=== PATIENT | male | born 1970 | race African-American/Black ===

== ENCOUNTER 2018-01-20 20:37 | Emergency (ER) | payer SELFPAY ==
--- NOTE | 2018-01-20 21:22 | RADIOLOGY REPORT (SQ) ---
EXAM DESCRIPTION: HAND RIGHT 3 VIEWS COMPLETED DATE/TIME: 01/20/2018 8:59 pm REASON FOR STUDY: Pain s/p injury (Hit a wall with fist) COMPARISON: None. EXAM PARAMETERS: NUMBER OF VIEWS: Three views. TECHNIQUE: AP, lateral and oblique radiographic images acquired of the right hand. LIMITATIONS: None. FINDINGS: MINERALIZATION: Normal. BONES: No dislocation. Comminuted fracture in the distal 5th metacarpal metaphysis with mild dorsal angulation and displacement. . JOINTS: No effusion. SOFT TISSUES: No significant soft tissue swelling. No radiopaque foreign body. OTHER: No other significant finding. IMPRESSION: Comminuted fracture in the distal 5th metacarpal metaphysis with mild dorsal angulation and displacement. TECHNICAL DOCUMENTATION: JOB ID: [id number] [place]-[id number] 2010 [employer]- All Rights Reserved Reading location - IP/workstation name: [email or web address]
[2018-01-20] MEDS ORDERED: LIDOCAINE 1% INJ-PF (10 MG/ML) 30 ML SDV INJ ONE (22:10)
[2018-01-20] MEDS ORDERED: OXYCODONE-ACETAMINOPHEN 5-325 MG TABLET PO ONE (23:12)
[2018-01-20] MEDS ORDERED: CEPHALEXIN 500 MG CAPSULE PO ONE (23:32)
[2018-01-20] MEDS ORDERED: HYDROCODONE/ACETAMINOPHEN 5-325 MG (6 TAB/ER DISP) PO PRN (23:33)
--- NOTE | 2018-01-20 23:39 | ER Document Report ---
ED Hand/Wrist Injury - General Chief Complaint: Hand Injury Stated Complaint: HAND INJURY Time Seen by Provider: 01/20/18 22:00 Mode of Arrival: Ambulatory Information source: Patient Notes: 47-year-old male presents to ED for complaint to the right hand after he punched a wall when he got angry at something he was trying to fix. He has a open wound to the ulnar side of his right hand with swelling tenderness and bruising. Is alert oriented respirations regular and unlabored speaking with full sentences walks with a even steady gait. TRAVEL OUTSIDE OF THE [place] IN LAST 30 DAYS: No - HPI Injury to: Hand - Right Onset: Just prior to arrival Where: Home, Indoors Timing: Still present Quality of pain: Sharp, Throbbing Severity: Severe Pain Level: 5 Context: Laceration, Swelling, Other - Punched a wall - Related Data Allergies/Adverse Reactions: Penicillins Allergy (Verified 01/20/18 20:41) Past Medical History - General Information source: Patient - Social History Smoking Status: Former Smoker Cigarette use (# per day): No Chew tobacco use (# tins/day): No Smoking Education Provided: No Frequency of alcohol use: None Drug Abuse: None Occupation: Heating and air/fast food Lives with: Family Family History: Reviewed & Not Pertinent Patient has suicidal ideation: No Patient has homicidal ideation: No - Past Medical History Cardiac Medical History: Reports: None Pulmonary Medical History: Reports: Hx Asthma, Hx Bronchitis, Hx Pneumonia EENT Medical History: Reports: None Neurological Medical History: Reports: None Endocrine Medical History: Reports: None Renal/ Medical History: Reports: None Malignancy Medical History: Reports None GI Medical History: Reports: None Musculoskeletal Medical History: Reports None Skin Medical History: Reports None Psychiatric Medical History: Reports: None Traumatic Medical History: Reports: Hx Fractures - Open comminuted boxer's fracture on 01/20/2018 Infectious Medical History: Reports: None Surgical Hx: Negative Past Surgical History: Reports: None - Immunizations Immunizations up to date: Yes Hx Diphtheria, Pertussis, Tetanus Vaccination: Yes Review of Systems - Review of Systems Constitutional: No symptoms reported EENT: No symptoms reported Cardiovascular: No symptoms reported Respiratory: No symptoms reported Gastrointestinal: No symptoms reported Genitourinary: No symptoms reported Male Genitourinary: No symptoms reported Musculoskeletal: Other - Right hand pain Skin: Other - Laceration just below the fifth finger on the right hand Hematologic/Lymphatic: No symptoms reported Neurological/Psychological: No symptoms reported -: Yes All other systems reviewed and negative Physical Exam - Vital signs Vitals: Temp Pulse Resp BP Pulse Ox 98.6 F 59 L 20 133/79 H 100 01/20/18 21:06 01/20/18 21:06 01/20/18 21:06 01/20/18 21:06 01/20/18 21:06 Interpretation: Normal - General General appearance: Appears well, Alert - HEENT Head: Normocephalic, Atraumatic Eyes: Normal Pupils: PERRL - Respiratory Respiratory status: No respiratory distress Chest status: Nontender Breath sounds: Normal Chest palpation: Normal - Cardiovascular Rhythm: Regular Heart sounds: Normal auscultation Murmur: No - Abdominal Inspection: Normal Distension: No distension Bowel sounds: Normal Tenderness: Nontender Organomegaly: No organomegaly - Back Back: Normal, Nontender - Extremities General upper extremity: Normal temperature General lower extremity: Normal inspection, Nontender, Normal color, Normal ROM , Normal temperature, Normal weight bearing. No: Loretta's sign Hand: Tender, Ecchymosis, Laceration, No evidence of human bite, No evidence of FB, Swelling - Neurological Neuro grossly intact: Yes Cognition: Normal Orientation: AAOx4 Cosme Coma Scale Eye Opening: Spontaneous [place] Coma Scale Verbal: Oriented [place] Coma Scale Motor: Obeys Commands Cosme Coma Scale Total: 15 Speech: Normal Motor strength normal: LUE, RUE, LLE, RLE Sensory: Normal - Psychological Associated symptoms: Normal affect, Normal mood - Skin Skin Temperature: Warm Skin Moisture: Dry Skin Color: Normal Skin irregularity: Laceration - 1.5 cm laceration fifth metacarpal with open comminuted boxer fracture Irregularity with: Swelling, Tenderness Course - Re-evaluation Re-evalutation: 01/20/18 23:44 Wound well irrigated after check in depth the wound this is an open comminuted fracture of the fifth metacarpal. Patient was started on Keflex and given Percocet before treating the wound. Wound was sutured with 2 sutures and then ulnar gutter splint applied. Patient was given instructions on elevation ice and follow-up with orthopedics by telephone in the morning. Patient was discharged home with a [employer] dispense pack and prescription for Keflex. Patient was instructed to please call orthopedics in the morning to schedule follow-up with for this open fracture. - Vital Signs Vital signs: Temp Pulse Resp BP Pulse Ox 98.5 F 67 18 128/85 H 98 01/21/18 00:10 01/21/18 00:10 01/21/18 00:10 01/21/18 00:10 01/21/18 00:10 - Diagnostic Test Radiology reviewed: Image reviewed, Reports reviewed Procedures - Immobilization Right Hand Immobilizer type: Ulnar Performed by: PCT Post-Proc Neuro Vasc Exam: Normal Alignment checked and good: No - Fracture not reduced open boxer's fracture - Laceration/Wound Repair Right Hand open comminuted fracture Time completed: 23:42 Wound length (cm): 1.5 Wound's Depth, Shape: Other - Open comminuted fracture Laceration pre-procedure: Sterile PPE donned, Sterile drapes applied, Shur- Clens applied Anesthetic type: 1% Lidocaine Volume Anesthetic (mLs): 5 Irrigated w/ Saline (mLs): 300 Wound Repaired With: Sutures Suture Size/Type: 5:0 Number of Sutures: 2 Layer Closure?: No Post-procedure wound care: Sterile dressing applied, Splint applied, Sling applied Post-procedure NV exam normal: Yes Complications: Yes - Open comminuted fracture Discharge - Discharge Clinical Impression: Right open comminuted boxer fracture Condition: Stable Disposition: HOME, SELF-CARE Additional Instructions: Fractured Fifth Metacarpal (Boxer's) You have a fracture of the fifth metacarpal bone in the hand, often called a Boxer's Fracture. The fracture is usually caused by striking the knuckle against a hard surface -- such as hitting a wall with the fist. This fracture heals well. Some degree of angle in the fracture is perfectly acceptable, resulting in only a slightly rounder knuckle. Your physician has determined whether your fracture could benefit from "setting", and has outlined a treatment plan for you. You need to call orthopedics in the morning and schedule follow-up visit as this is open comminuted fracture. Cephalexin The antibiotic you've been prescribed is a member of the cephalosporin class. This type of antibiotic covers a wide variety of infections, including those of the skin, lungs, and urinary tract. It's useful for staph infections. This antibiotic is slightly similar to the penicillin family. In rare cases , a person who is allergic to penicillin will also be allergic to this medication. If you have had a severe allergic reaction to penicillin, and have not taken this antibiotic since that time, notify your doctor. Antibiotics which cover many germs ("broad spectrum" antibiotics) are more likely to cause diarrhea or "yeast" infections. Women prone to vaginal yeast problems may suffer an attack after taking this antibiotic. In infants, oral thrush (white spots "stuck" on the cheek) or yeast diaper rash may result. See your doctor if these problems occur. Call at once if you develop itching, hives , shortness of breath, or lightheadedness. Ice & Elevation Apply ice packs frequently against the painful area. Many different schedules are recommended, such as "20 minutes on, 20 minutes off" or "one hour ice, two hours rest." If you need to work, you may need to go longer between ice treatments. You should plan to have the area ice packed AT LEAST one- fourth of the time. The ice should be applied over the wrap, tape, or splint, or over a layer of cloth -- not directly against the skin. Some ice bags have a built-in cloth and can be put directly on the skin. Your injured part should be elevated as much as possible over the next 48 hours. Try to keep the injury above the level of the heart. Avoid use of the injured area. Elevation and rest will decrease the swelling. Do not change this dressing for 24 hours. After 24 hours, if you have not followed up with orthopedics then you need to start cleaning the wound as below. Please call the orthopedic surgeon first thing in the morning to schedule follow-up. SOAP CLEANSING: Gently wash the wound daily using a mild soap (like Ivory, Phisoderm, Neutrogena). Use warm water, rubbing gently until all debris, ooze, and crusting have been washed from the wound. Allow to dry briefly (about 10 minutes) after cleaning. Repeat this cleansing at least three times a day for the first two days and then once or twice a day. ANTIBIOTIC OINTMENT PROTECTION: Your wounds are such that dressing them is not practical or optional. After cleansing, you should apply a thin coating of antibiotic ointment ( Bacitracin, not Neosporin) to the wounds at least three times daily. This lessens infection risk, and may decrease the amount of scarring. Use a q-tip or dull butter knife, not your finger, to apply this ointment. Any debris or ooze which builds up in the ointment should be gently rubbed off with a sterile gauze pad. Harder crusting may need to be gently scrubbed off with a clean wash cloth with soap and warm water, perhaps applying a warm, wet wash cloth to the wound for ten minutes first. Development of redness, severe itching, or blistering may mean allergy to the ointment. See the doctor. ORAL NARCOTIC MEDICATION: You have been given a prescription for pain control. This medication is a narcotic. It's best taken with food, as nausea can result if taken on an empty stomach. Don't operate machinery or drive within six hours of taking this medication. Do not combine this medicine with alcohol, or with any medication which can cause sedation (such as cold tablets or sleeping pills) unless you get permission from the physician. Narcotics tend to cause constipation. If possible, drink plenty of fluids and eat a diet high in fiber and fruits. FOLLOW-UP CARE: Please return in __2___ days for an infection check and dressing change. Your sutures should be removed in __10 ___ days. To facilitate a timely removal of your sutures, you may return to the [facility] at [facility]. You do not need to call for an appointment, but the best time to come in for suture removal is early in the morning. If you have been referred to another physician for follow-up care, call that physicians office for an appointment as you were instructed. If you experience a significant change in your laceration, or if you are concerned there may be an infection (swelling, redness, drainage, increasing tenderness, red streaks, tender lumps in the armpit or groin above the laceration, or fever) , return to the Emergency Department immediately re-evaluation. Prescriptions: Cephalexin Monohydrate [Keflex 500 mg Capsule] 500 mg PO QID #20 capsule Forms: Elevated Blood Pressure, Return to Work Referrals: MAURIZIO JONES NP [Primary Care Provider] - Follow up as needed BALTA DUARTE DO [ACTIVE STAFF] - Follow up as needed
[2018-01-21 00:11] VITALS: BP 128/85
== END 2018-01-21 00:11 | disposition home or self-care (01) ==
LOC: ER 20:37
DX: S62.306B Unspecified fracture of fifth metacarpal bone, right hand, initial encounter for open fracture (principal); M79.641 Pain in right hand; W22.01XA Walked into wall, initial encounter; Y92.009 Unspecified place in unspecified non-institutional (private) residence as the place of occurrence of the external cause; J45.909 Unspecified asthma, uncomplicated; Z88.0 Allergy status to penicillin; Z87.891 Personal history of nicotine dependence
CPT/HCPCS: 99283; 73130; 26605; J3490

== ENCOUNTER 2018-03-29 06:59 | Emergency (ER) | payer SELFPAY ==
[2018-03-29 07:05] VITALS: BP 126/81
[2018-03-29] MEDS ORDERED: IPRATROPIUM/ALBUTEROL 0.5-2.5 MG/3 ML AMPUL NEB ONE (07:46)
--- NOTE | 2018-03-29 08:20 | RADIOLOGY REPORT (SQ) ---
EXAM DESCRIPTION: CHEST 2 VIEWS COMPLETED DATE/TIME: 03/29/2018 8:03 am REASON FOR STUDY: cough/wheeze COMPARISON: None. EXAM PARAMETERS: NUMBER OF VIEWS: two views TECHNIQUE: Digital Frontal and Lateral radiographic views of the chest acquired. RADIATION DOSE: NA LIMITATIONS: none FINDINGS: LUNGS AND PLEURA: No opacities, masses or pneumothorax. No pleural effusion. MEDIASTINUM AND HILAR STRUCTURES: No masses or contour abnormalities. HEART AND VASCULAR STRUCTURES: Heart normal size. No evidence for failure. BONES: No acute findings. HARDWARE: None in the chest. OTHER: Small external bottle-like overlies the right costophrenic angle on the PA image. IMPRESSION: 1. NO ACUTE RADIOGRAPHIC FINDING IN THE CHEST. TECHNICAL DOCUMENTATION: JOB ID: [id number] [employer]- All Rights Reserved Reading location - IP/workstation name: [email or web address]
--- NOTE | 2018-03-29 09:33 | ER Document Report ---
ED Respiratory Problem - General Chief Complaint: Cough Stated Complaint: SHORTNESS OF BREATH Time Seen by Provider: 03/29/18 07:41 Mode of Arrival: Ambulatory Information source: Patient Notes: Patient is a 48-year-old male comes emergency room complaining of cough congestion. 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 He states that has progressively gotten worse he has a history of asthma he did use his inhaler once yesterday and did not feel like he gave him much relief. He then last night his stated that he was hot all over his body and she was using a wet rag to keep him cooler. Patient did not take a temperature he just felt like he was hot. He only took 1 dose of NyQuil last night and did not get any sleep. He denies any history of cardiac problems does not smoke and is generally in healthy condition. TRAVEL OUTSIDE OF THE [place] IN LAST 30 DAYS: No - HPI Patient complains to provider of: Asthma Onset: Other Duration: Continuous, Worse/persistent Initiating Event: Exertion, URI Quality of pain: Achy Severity: Moderate Pain Level: 3 Short of Breath: Mild Chest pain/discomfort: Worse with deep breaths Cough: Productive Sputum amount: Moderate Sputum color: Green Sputum consistency: Thick At home treatment: Bronchodilators Associated symptoms: Congestion, Facial pain, Sinus pain/pressure, Wheezing Similar symptoms previously: No Recently seen / treated by doctor: No - Related Data Allergies/Adverse Reactions: Penicillins Allergy (Verified 01/20/18 20:41) Past Medical History - General Information source: Patient - Social History Smoking Status: Never Smoker Cigarette use (# per day): No Chew tobacco use (# tins/day): No Smoking Education Provided: No Frequency of alcohol use: None Drug Abuse: None Family History: Reviewed & Not Pertinent Pulmonary Medical History: Reports: Hx Asthma, Hx Bronchitis, Hx Pneumonia Renal/ Medical History: Denies: Hx Peritoneal Dialysis Traumatic Medical History: Reports: Hx Fractures - Open comminuted boxer's fracture on 01/20/2018 - Immunizations Immunizations up to date: Yes Hx Diphtheria, Pertussis, Tetanus Vaccination: Yes Review of Systems - Review of Systems Constitutional: No symptoms reported EENT: Nose congestion, Sinus pressure Cardiovascular: No symptoms reported Respiratory: Cough, Short of breath, Sputum, Wheezing Gastrointestinal: No symptoms reported Genitourinary: No symptoms reported Male Genitourinary: No symptoms reported Musculoskeletal: No symptoms reported Skin: No symptoms reported Hematologic/Lymphatic: No symptoms reported Neurological/Psychological: No symptoms reported -: Yes All other systems reviewed and negative Physical Exam - Vital signs Vitals: Temp Pulse Resp BP Pulse Ox 99.3 F 88 14 126/81 H 95 03/29/18 07:02 03/29/18 07:02 03/29/18 07:02 03/29/18 07:02 03/29/18 07:02 Interpretation: Hypertensive - Notes Notes: PHYSICAL EXAMINATION: GENERAL: Patient is a well-nourished well-developed 48-year-old male in no apparent distress and very healthy-appearing of note that was a failure of HEAD: Atraumatic, normocephalic. EYES: Pupils equal round and reactive to light, extraocular movements intact, sclera anicteric, conjunctiva are normal. ENT: Examination of head and upper airway showed nasal mucosa to be mildly erythematous and edematous with some clear rhinorrhea noted bilateral nostrils. Patient displays tenderness to palpation on the frontal sinuses bilaterally but not on the maxillary sinuses. Examination of the TMs show them to be bulging with no air-fluid levels. There is some cerumen in bilateral external canals but they do not obstruct the view of the TMs. Continue to examination of the oropharynx shows there to be some mild erythema in the posterior pharynx with bilateral tonsils that appear slightly engorged but no exudate is noted. Uvula is midline with no exudate mild erythema. NECK: Normal range of motion, supple without lymphadenopathy LUNGS: Auscultation patient's lung juarez show he has bilateral breath sounds breath sounds are decreased throughout with a faint end expiratory wheeze noted greater on the right than on the left. There is also some upper airway rhonchi on deep inspiration that clears with cough. HEART: Regular rate and rhythm without murmurs ABDOMEN: Soft, nontender, nondistended abdomen. No guarding, no rebound. No masses appreciated. Musculoskeletal: Normal range of motion, no pitting or edema. No cyanosis. NEUROLOGICAL: Cranial nerves grossly intact. Normal speech, normal gait. Normal sensory, motor exams PSYCH: Normal mood, normal affect. SKIN: Warm, Dry, normal turgor, no rashes or lesions noted. Course - Re-evaluation Re-evalutation: 03/29/18 09:42 Patient feels that this entire process started when he ran out of the house being not completely covered and still slightly damp from taking a shower. He has upper respiratory symptoms low-grade fever at this time I do not believe that he needs to have any antibiotic coverage. I will place him on a steroid taper for the upper airway wheezing. He has not MDI at home which I am going to have him do on a regular basis. I will give him some Sudafed for the drainage. Once the drainage stops that cough should stop. I have instructed patient to return to ER if he should spike a high fever if he starts getting more short of breath or if he has any concerns return for recheck. - Vital Signs Vital signs: Temp Pulse Resp BP Pulse Ox 99.3 F 88 14 126/81 H 95 03/29/18 07:02 03/29/18 07:02 03/29/18 07:02 03/29/18 07:02 03/29/18 07:02 Discharge - Discharge Clinical Impression: Asthmatic bronchitis Qualifiers: Asthma severity: mild Asthma persistence: persistent Asthma complication type: with acute exacerbation Qualified Code(s): J45.31 - Mild persistent asthma with (acute) exacerbation Condition: Stable Disposition: HOME, SELF-CARE Instructions: Bronchitis With Bronchospasm (Wheezing) ([facility]), Upper Respiratory Illness ([facility]) Additional Instructions: Home today rest. As we discussed I want you to do your inhaler every 4-6 hours to keep the lungs open and breathing better. Take medication as prescribed Tylenol alternating with Motrin every 4 hours to keep fever and aches and pains down. Should you spike a fever that is not controlled on Tylenol or Motrin or become more short of breath return to ER for a recheck. Prescriptions: Prednisone [Sterapred Ds] 10 mg PO ASDIR PRN 6 Days #1 tab.ds.pk PRN Reason: Pseudoephedrine HCl [Sudafed 12 Hour] 120 mg PO BID #20 tablet.er Forms: Return to Work Referrals: MAURIZIO JONES, CERTIFIED SURGICAL TECH/FIRST ASSISTANT [Primary Care Provider] - Follow up as needed
== END 2018-03-29 10:06 | disposition home or self-care (01) ==
LOC: ER 06:59
DX: J45.31 Mild persistent asthma with (acute) exacerbation (principal); R05 Cough; R09.81 Nasal congestion; R09.89 Other specified symptoms and signs involving the circulatory and respiratory systems; R51 Headache
CPT/HCPCS: 71046; 99283

== ENCOUNTER 2018-11-24 21:37 | Emergency (ER) | payer SELFPAY ==
--- NOTE | 2018-11-24 22:31 | EKG REPORT ---
SEVERITY:- NORMAL ECG - SINUS RHYTHM : Confirmed by: Carmelina Piper 24-Nov-2018 22:31:06
[2018-11-24] MEDS ORDERED: PREDNISONE 20 MG TABLET PO ONE (22:39)
[2018-11-24] MEDS ORDERED: IPRATROPIUM/ALBUTEROL 0.5-2.5 MG/3 ML AMPUL NEB ONE (22:40)
--- NOTE | 2018-11-24 22:41 | ER Document Report ---
ED Medical Screen (RME) - General Chief Complaint: Chest Tightness Stated Complaint: SHORTNESS OF BREATH,CHEST TIGHTNESS Time Seen by Provider: 11/24/18 22:39 Primary Care Provider: MAURIZIO JONES NP [Primary Care Provider] - Follow up as needed Notes: 48-year-old -[place] male with history of allergy induced bronchospasm was out mowing the yard and started getting tightness and shortness of breath. Took his albuterol inhaler but is still feeling short of breath. No fevers or chills. No chest pain. I have treated and performed a rapid initial assessment of this patient. A comprehensive ED assessment and evaluation of the patient, analysis of test results and completion of medical decision making process will be conducted by additional ED providers. PHYSICAL EXAMINATION: GENERAL: Well-appearing, well-nourished and in no acute distress. A&Ox4. Answers questions appropriately. LUNGS: Diminished bilaterally HEART: Regular rate and rhythm without murmurs, rubs, gallops. ABDOMEN: Soft, nondistended abdomen. No guarding, no rebound. Normal bowel sounds present. No CVA tenderness bilaterally. + mild epigastric tenderness (cannot elicit thorough abd exam w/o table, however). Extremities: No cyanosis, clubbing, or edema b/l. NEUROLOGICAL: Normal speech, normal gait. PSYCH: Normal mood, normal affect. TRAVEL OUTSIDE OF THE [place] IN LAST 30 DAYS: No - Related Data Allergies/Adverse Reactions: Penicillins Allergy (Verified 01/20/18 20:41) Past Medical History Pulmonary Medical History: Reports: Hx Asthma, Hx Bronchitis, Hx Pneumonia Renal/ Medical History: Denies: Hx Peritoneal Dialysis Traumatic Medical History: Reports: Hx Fractures - Open comminuted boxer's fracture on 01/20/2018 - Immunizations Immunizations up to date: Yes Hx Diphtheria, Pertussis, Tetanus Vaccination: Yes Physical Exam - Vital signs Vitals: Temp Pulse Resp BP Pulse Ox 98.5 F 73 15 130/81 H 96 11/24/18 21:50 11/24/18 21:50 11/24/18 21:50 11/24/18 21:50 11/24/18 21:50 Course - Vital Signs Vital signs: Temp Pulse Resp BP Pulse Ox 98.5 F 73 15 130/81 H 96 11/24/18 21:50 11/24/18 21:50 11/24/18 21:50 11/24/18 21:50 11/24/18 21:50 Doctor's Discharge - Discharge Referrals: MAURIZIO JONES NP [Primary Care Provider] - Follow up as needed
[2018-11-25] MEDS ORDERED: ASPIRIN 81 MG TABLET, CHEWABLE PO ONE (00:22)
[2018-11-25 00:57] LABS: ABSOLUTE EOSINOPHILS # (AUTO) 0.5 10^3/uL (0.0-0.6); ABSOLUTE LYMPHOCYTES (AUTO) 1.9 10^3/uL (0.5-4.7); ABSOLUTE MONOCYTES (AUTO) 0.6 10^3/uL (0.1-1.4); ABSOLUTE NEUT (AUTO) 3.3 10^3/uL (1.7-8.2); BASOPHILS % (AUTO) 0.7 % (0-2); EOSINOPHILS % (AUTO) 8.4 % (0-6); HEMATOCRIT 41.1 % (37.9-51.0); HEMOGLOBIN 14.2 g/dL (13.5-17.0); LYMPHOCYTES % (AUTO) 29.7 % (13-45); MEAN CORPUSCULAR HEMOGLOBIN 35.2 pg (27.0-33.4); MEAN CORPUSCULAR HGB CONC 34.6 g/dL (32.0-36.0); MEAN CORPUSCULAR VOLUME 102 fl (80-97); MONOCYTES % (AUTO) 9.1 % (3-13); PLATELET COUNT 141 10^3/uL (150-450); RED BLOOD COUNT 4.05 10^6/uL (4.35-5.55); RED CELL DISTRIBUTION WIDTH 13.5 % (11.5-14.0); SEGMENTED NEUTROPHILS % (AUTO) 52.1 % (42-78); TOTAL CELLS COUNTED % (AUTO) 100 %; WHITE BLOOD COUNT 6.3 10^3/uL (4.0-10.5)
--- NOTE | 2018-11-25 01:46 | RADIOLOGY REPORT (SQ) ---
EXAM DESCRIPTION: XR CHEST 1 VIEW COMPLETED DATE/TME: 11/25/2018 00:20 CLINICAL HISTORY: 48 years, Male, sob COMPARISON: 11-18 chest NUMBER OF VIEWS: 1 TECHNIQUE: Portable chest LIMITATIONS: None. FINDINGS: Heart size normal. Lungs clear. No pneumothorax IMPRESSION: Negative chest copyright 2010 [facility] [employer]- All Rights Reserved
[2018-11-25 02:00] LABS: ANION GAP 9 (5-19); BLOOD UREA NITROGEN 15 mg/dL (7-20); CARBON DIOXIDE 25 mmol/L (22-30); CHLORIDE 104 mmol/L (98-107); GLUCOSE 130 mg/dL (75-110); POTASSIUM 3.8 mmol/L (3.6-5.0); SODIUM 138.1 mmol/L (137-145)
--- NOTE | 2018-11-25 02:59 | ER Document Report ---
ED General - General Chief Complaint: Chest Tightness Stated Complaint: SHORTNESS OF BREATH,CHEST TIGHTNESS Time Seen by Provider: 11/24/18 22:39 Primary Care Provider: MAURIZIO JONES NP [NURSE PRACTITIONER] - Follow up as needed Notes: Patient is a 48-year-old male with past medical history of asthma, denies other chronic medical problems who presents with chest tightness and feelings of difficulty breathing that started at approximately 12 noon today. States that they started while he was mowing lawn and became progressively worse the longer he was outside. Denies any necessary exertional component to the tightness. Regards symptoms as being moderate in intensity. States this feels similar to when he has no but he says that ever had asthma exacerbations in the past. Tried using his albuterol inhaler at home without a spacer with no relief. Has not seen his primary care physician regarding today's concerns. Does not take his Advair on a daily basis secondary to the cost. Denies any known history of cardiac disease. At the time of my evaluation denies any symptoms after receiving treatment in triage. TRAVEL OUTSIDE OF THE [place] IN LAST 30 DAYS: No - Related Data Allergies/Adverse Reactions: Penicillins Allergy (Verified 11/24/18 22:46) Past Medical History - General Information source: Patient - Social History Smoking Status: Never Smoker Frequency of alcohol use: None Drug Abuse: None Lives with: Spouse/Significant other Family History: Reviewed & Not Pertinent Patient has suicidal ideation: No Patient has homicidal ideation: No Pulmonary Medical History: Reports: Hx Asthma, Hx Bronchitis, Hx Pneumonia Renal/ Medical History: Denies: Hx Peritoneal Dialysis Traumatic Medical History: Reports: Hx Fractures - Open comminuted boxer's fracture on 01/20/2018 - Immunizations Immunizations up to date: Yes Hx Diphtheria, Pertussis, Tetanus Vaccination: Yes Review of Systems - Review of Systems Notes: Constitutional: Negative for fever. HENT: Negative for sore throat. Eyes: Negative for visual changes. Cardiovascular: Positive chest tightness Respiratory: Positive for shortness of breath Gastrointestinal: Negative for abdominal pain, vomiting or diarrhea. Genitourinary: Negative for dysuria. Musculoskeletal: Negative for back pain. Skin: Negative for rash. Neurological: Negative for headaches, weakness or numbness. 10 point ROS negative except as marked above and in HPI. Physical Exam - Vital signs Vitals: Temp Pulse Resp BP Pulse Ox 98.5 F 73 15 130/81 H 96 11/24/18 21:50 11/24/18 21:50 11/24/18 21:50 11/24/18 21:50 11/24/18 21:50 Interpretation: Normal Notes: PHYSICAL EXAMINATION: GENERAL: Well-appearing, well-nourished and in no acute distress. HEAD: Atraumatic, normocephalic. EYES: Pupils equal round and reactive to light, extraocular movements intact, sclera anicteric, conjunctiva are normal. ENT: nares patent, oropharynx clear without exudates. Moist mucous membranes. NECK: Normal range of motion, supple without lymphadenopathy LUNGS: Breath sounds clear to auscultation bilaterally and equal. No wheezes rales or rhonchi. HEART: Regular rate and rhythm without murmurs ABDOMEN: Soft, nontender, normoactive bowel sounds. No guarding, no rebound. No masses appreciated. EXTREMITIES: Normal range of motion, no pitting or edema. No cyanosis. NEUROLOGICAL: No focal neurological deficits. Moves all extremities spontaneously and on command. PSYCH: Normal mood, normal affect. SKIN: Warm, Dry, normal turgor, no rashes or lesions noted. Course - Re-evaluation Re-evalutation: 11/25/18 03:01 Presentation of chest tightness with associated shortness of breath while mowing lawn. Patient states that this feels similar to when he had asthma exacerbations in the past although states that he has not had an exacerbation while mowing lawn in the past. Patient reports since receiving a nebulizer t reatment and oral steroids in triage he feels much better. Currently denies any symptoms. Low clinical suspicion for ACS given clinical history, exam, EKG without ST elevations or depressions, and negative initial troponin. HEART score less than or equal to 3. PE also seems unlikely given clinical history, absence of tachycardia or dyspnea. Patient is PERC criteria negative. CXR without evidence of pneumothorax or pneumonia. No widened mediastinum. Aortic dissection also seems unlikely given history, symmetric pulses, CXR, and vitals. At this time will discharge with return precautions and follow-up recommendations. Verbal discharge instructions given a the bedside and opportunity for questions given. Medication warnings reviewed. Patient is in agreement with this plan and has verbalized understanding of return precautions and the need for primary care follow-up in the next 24-72 hours. - Vital Signs Vital signs: Temp Pulse Resp BP Pulse Ox 98.5 F 73 15 123/65 96 11/24/18 21:50 11/24/18 21:50 11/24/18 21:50 11/25/18 00:01 11/25/18 00:02 - Laboratory Result Diagrams: 11/25/18 00:38 11/25/18 00:38 Laboratory results interpreted by me: 11/25/18 11/25/18 00:38 00:38 RBC 4.05 L MCV 102 H MCH 35.2 H Plt Count 141 L Eosinophils % 8.4 H Glucose 130 H - Diagnostic Test Radiology reviewed: Image reviewed, Reports reviewed Radiology results interpreted by me: 11/25/18 03:00 Chest x-ray: No acute infiltrate or pneumothorax - EKG Interpretation by Me Additional EKG results interpreted by me: 11/25/18 03:00 Sinus rhythm, rate 71, no ST elevations or depressions. QTC is 435. Discharge - Discharge Clinical Impression: Chest tightness Asthma exacerbation Qualifiers: Asthma severity: mild Asthma persistence: persistent Qualified Code(s): J45.31 - Mild persistent asthma with (acute) exacerbation Condition: Good Disposition: HOME, SELF-CARE Additional Instructions: You were seen for an asthma exacerbation. Your symptoms improved with treatment here in the emergency department. However, it is very important that you return to the emergency department immediately if you began to have worsening difficulty breathing that does not respond to your normal home nebulizers. You are also being sent home on a five-day course of steroids that you should start taking tomorrow. Please also follow closely with your primary care physician. you should also return to emergency department if you develop fever greater than 101, persistent cough, persistent vomiting, pass out, or any other symptoms that are concerning to you. Prescriptions: Albuterol Sulfate [Proair HFA Inhalation Aerosol 8.5 gm MDI] 2 puff IH Q4H PRN #1 mdi PRN Reason: Prednisone [Deltasone 20 mg Tablet] 2 tab PO DAILY 5 Days tablet Referrals: MAURIZIO JONES, OPERATIONS SYSTEMS SPECIALIST [NURSE PRACTITIONER] - Follow up as needed
[2018-11-25 03:01] VITALS: BP 115/67
== END 2018-11-25 03:05 | disposition home or self-care (01) ==
LOC: ER 21:37
DX: J45.31 Mild persistent asthma with (acute) exacerbation (principal); R07.89 Other chest pain; R06.02 Shortness of breath; Z88.0 Allergy status to penicillin; Z87.01 Personal history of pneumonia (recurrent)
CPT/HCPCS: 93005; 94640; 99285; 36415; 85025; 80048; 84484; 71045; 93010; J7512; J7620

== ENCOUNTER 2019-03-13 08:36 | Emergency (ER) | payer OTHER ==
[2019-03-13] MEDS ORDERED: ONDANSETRON HCL INJ/PF 4 MG/2 ML SDV IV ONE (08:55)
[2019-03-13] MEDS ORDERED: MORPHINE SULFATE 10 MG/ML INJ IV ONE ×2 (08:55→11:35)
[2019-03-13] MEDS ORDERED: NORMAL SALINE 1000 ML 1,000 ML IV PRN (08:55)
[2019-03-13 09:02] LABS: ABSOLUTE EOSINOPHILS # (AUTO) 0.3 10^3/uL (0.0-0.6); ABSOLUTE LYMPHOCYTES (AUTO) 1.3 10^3/uL (0.5-4.7); ABSOLUTE MONOCYTES (AUTO) 0.4 10^3/uL (0.1-1.4); BASOPHILS % (AUTO) 1.2 % (0-2); EOSINOPHILS % (AUTO) 7.8 % (0-6); HEMOGLOBIN 15.4 g/dL (13.5-17.0); LYMPHOCYTES % (AUTO) 31.2 % (13-45); MEAN CORPUSCULAR HEMOGLOBIN 35.5 pg (27.0-33.4); MEAN CORPUSCULAR HGB CONC 34.3 g/dL (32.0-36.0); MEAN CORPUSCULAR VOLUME 104 fl (80-97); MONOCYTES % (AUTO) 9.4 % (3-13); PLATELET COUNT 140 10^3/uL (150-450); RED BLOOD COUNT 4.35 10^6/uL (4.35-5.55); RED CELL DISTRIBUTION WIDTH 13.6 % (11.5-14.0); SEGMENTED NEUTROPHILS % (AUTO) 50.4 % (42-78); TOTAL CELLS COUNTED % (AUTO) 100 %; WHITE BLOOD COUNT 4.1 10^3/uL (4.0-10.5)
[2019-03-13 09:46] LABS: ALKALINE PHOSPHATASE 63 U/L (38-126); ANION GAP 5 (5-19); ASPARTATE AMINO TRANSFERASE 31 U/L (17-59); BILIRUBIN,DIRECT 0.1 mg/dL (0.0-0.4); BILIRUBIN,TOTAL 0.7 mg/dL (0.2-1.3); BLOOD UREA NITROGEN 9 mg/dL (7-20); CALCIUM 9.1 mg/dL (8.4-10.2); CARBON DIOXIDE 31 mmol/L (22-30); CHLORIDE 102 mmol/L (98-107); GLUCOSE 91 mg/dL (75-110); POTASSIUM 3.7 mmol/L (3.6-5.0); TOTAL PROTEIN 6.9 g/dL (6.3-8.2)
[2019-03-13 10:13] LABS: AMORPHOUS SEDIMENT,URINE TRACE /HPF; APPEARANCE,URINE SLIGHTLY-CLOUDY; BILIRUBIN,URINE NEGATIVE (NEGATIVE); COLOR,URINE YELLOW; GLUCOSE, URINE NEGATIVE (NEGATIVE); KETONES,URINE NEGATIVE (NEGATIVE); LEUKOCYTE ESTERASE,URINE NEGATIVE (NEGATIVE); NITRITE,URINE NEGATIVE (NEGATIVE); PROTEIN,URINE NEGATIVE (NEGATIVE); URINE SPECIFIC GRAVITY 1.013; UROBILINOGEN,URINE NEGATIVE mg/dL (<2.0)
--- NOTE | 2019-03-13 11:37 | RADIOLOGY REPORT (SQ) ---
EXAM DESCRIPTION: CT ABD/PELVIS WITH IV ONLY COMPLETED DATE/TIME: 03/13/2019 11:12 am REASON FOR STUDY: door fell on pt/pain COMPARISON: None. TECHNIQUE: CT scan of the abdomen and pelvis performed using helical scanning technique with dynamic intravenous contrast injection. No oral contrast. Images reviewed with lung, soft tissue, and bone windows. Reconstructed coronal and sagittal MPR images reviewed. Additional reconstructed coronal an d sagittal images of the lumbar spine also performed. Delayed images for evaluation of the urinary s ystem also acquired. All images stored on PACS. All CT scanners at this facility use dose modulation, iterative reconstruction, and/or weight based d osing when appropriate to reduce radiation dose to as low as reasonably achievable (ALARA). [facility]: Dose Right [facility]: CareDose [facility]: Dose Right [facility]: Teradose 4D [facility]: LaraPharm CONTRAST TYPE AND DOSE: contrast/concentration: Isovue 350.00 mg/ml; Total Contrast Delivered: 96.0 ml; Total Saline Delivered: 49.8 ml RENAL FUNCTION: BUN 9 creatinine 0.9. RADIATION DOSE: CT Rad equipment meets quality standard of care and radiation dose reduction techniq ues were employed. CTDIvol: 5.6 - 7.8 mGy. DLP: 761 mGy-cm.. LIMITATIONS: None. FINDINGS: LOWER CHEST: No significant findings. No nodules or infiltrates. LIVER: Normal size. No masses. No dilated ducts. SPLEEN: Normal size. No focal lesions. PANCREAS: No masses. No significant calcifications. No adjacent inflammation or peripancreatic fluid collections. Pancreatic duct not dilated. GALLBLADDER: No identified stones by CT criteria. No inflammatory changes to suggest cholecystitis. ADRENAL GLANDS: No significant masses or asymmetry. RIGHT KIDNEY AND URETER: No solid masses. No significant calcifications. No hydronephrosis or hyd roureter. LEFT KIDNEY AND URETER: No solid masses. No significant calcifications. No hydronephrosis or hydr oureter. AORTA AND VESSELS: No aneurysm. No dissection. Renal arteries, SMA, celiac without stenosis. RETROPERITONEUM: No retroperitoneal adenopathy, hemorrhage or masses. BOWEL AND PERITONEAL CAVITY: No masses or inflammatory changes. No free fluid or peritoneal masses. APPENDIX: Normal. PELVIS: No mass. No free fluid. Normal bladder. ABDOMINAL WALL: No masses. No hernias. BONES: Linear radiolucency in the anterior tip of the left 11th rib (axial series 5, image 42 and sag ittal series 602, image 79). Other bony structures intact. LUMBAR SPINE: No fracture or acute findings. Normal alignment. OTHER: No other significant finding. IMPRESSION: 1. LINEAR RADIOLUCENCY AT THE ANTERIOR TIP OF THE LEFT 11TH RIB, CONSISTENT WITH A MINIMALLY DISPLACE D FRACTURE. 2. NO ACUTE OR SIGNIFICANT FINDINGS IN THE LUMBAR SPINE. 3. NO OTHER SIGNIFICANT OR ACUTE FINDING IN THE ABDOMEN OR PELVIS ON CT SCAN WITH IV CONTRAST. TECHNICAL DOCUMENTATION: JOB ID: [id number] Quality ID # [id number]: Final reports with documentation of one or more dose reduction techniques (e.g., Au tomated exposure control, adjustment of the mA and/or kV according to patient size, use of iterative reconstruction technique) 2010 [employer]- All Rights Reserved Reading location - IP/workstation name: [email or web address]
--- NOTE | 2019-03-13 12:17 | ER Document Report ---
ED Trauma/MVC - General Chief Complaint: Back Injury Stated Complaint: FALL/BACK PAIN Time Seen by Provider: 03/13/19 08:55 Mode of Arrival: Medic Information source: Patient TRAVEL OUTSIDE OF THE [place] IN LAST 30 DAYS: No - HPI Notes: Patient presents with complaints of severe lower back pain. Patient states that he was at work when a heavy steel door fell on top of him. This caused severe low back pain. It is slightly worse on the left. It does radiate into his hips. It is severe and constant. Is worse with movement and better with rest. It is a sharp pain. He denies any chest pain or trouble breathing. No significant abdominal pain or nausea. No loss of consciousness. No neck pain or head pain. He denies any abnormal sensation in any extremities. - Related Data Allergies/Adverse Reactions: Penicillins Allergy (Verified 11/24/18 22:46) Past Medical History - General Information source: Patient - Social History Smoking Status: Former Smoker Chew tobacco use (# tins/day): Yes Frequency of alcohol use: None Drug Abuse: None Family History: Reviewed & Not Pertinent Patient has suicidal ideation: No Patient has homicidal ideation: No Pulmonary Medical History: Reports: Hx Asthma, Hx Bronchitis, Hx Pneumonia Renal/ Medical History: Denies: Hx Peritoneal Dialysis Traumatic Medical History: Reports: Hx Fractures - Open comminuted boxer's fracture on 01/20/2018 - Immunizations Immunizations up to date: Yes Hx Diphtheria, Pertussis, Tetanus Vaccination: Yes Review of Systems - Review of Systems Constitutional: denies: Chills, Fever Cardiovascular: denies: Chest pain, Palpitations Respiratory: denies: Cough, Short of breath Gastrointestinal: denies: Abdominal pain, Vomiting -: Yes All other systems reviewed and negative Physical Exam - Vital signs Vitals: Resp Pulse Ox 12 96 03/13/19 08:58 03/13/19 08:58 Interpretation: Normal - General General appearance: Appears well, Alert - HEENT Head: Normocephalic, Atraumatic Eyes: Normal Pupils: PERRL - Respiratory Respiratory status: No respiratory distress Chest status: Nontender Breath sounds: Normal Chest palpation: Normal - Cardiovascular Rhythm: Regular Heart sounds: Normal auscultation Murmur: No - Abdominal Inspection: Normal Distension: No distension Bowel sounds: Normal Tenderness: Nontender Organomegaly: No organomegaly - Back Back: Tender - Patient has diffuse lumbar spine tenderness to palpation as well as paraspinal pain to palpation in the lumbar area. But there is no step-offs or deformities. - Extremities General upper extremity: Normal inspection, Nontender, Normal color, Normal ROM, Normal temperature General lower extremity: Normal inspection, Nontender, Normal color, Normal ROM, Normal temperature, Normal weight bearing. No: Loretta's sign - Neurological Neuro grossly intact: Yes Cognition: Normal Orientation: AAOx4 [place] Coma Scale Eye Opening: Spontaneous [place] Coma Scale Verbal: Oriented [place] Coma Scale Motor: Obeys Commands Rob[place] Coma Scale Total: 15 Speech: Normal Motor strength normal: LUE, RUE, LLE, RLE Sensory: Normal - Psychological Associated symptoms: Normal affect, Normal mood - Skin Skin Temperature: Warm Skin Moisture: Dry Skin Color: Normal Course - Re-evaluation Re-evalutation: 03/13/19 12:15 Patient presents after door fell on him with severe low back pain. CT scan of the abdomen pelvis and back show no evidence of acute abnormality. There is a question of a nondisplaced 11th rib fracture however patient has no tenderness to palpation of the 11th ribs I feel this is most likely an artifact. - Vital Signs Vital signs: Temp Pulse Resp BP Pulse Ox 16 144/96 H 100 03/13/19 12:01 03/13/19 12:01 03/13/19 12:01 - Laboratory Result Diagrams: 03/13/19 08:50 03/13/19 08:50 Laboratory results interpreted by me: 03/13/19 03/13/19 08:50 08:50 MCV 104 H MCH 35.5 H Plt Count 140 L Eos % (Auto) 7.8 H Carbon Dioxide 31 H - Diagnostic Test Radiology reviewed: Image reviewed, Reports reviewed Discharge - Discharge Clinical Impression: Lumbar strain Qualifiers: Encounter type: initial encounter Qualified Code(s): S39.012A - Strain of muscle, fascia and tendon of lower back, initial encounter Condition: Stable Disposition: HOME, SELF-CARE Instructions: Low Back Pain ([facility]), Oral Narcotic Medication ([facility]) Additional Instructions: Please call your primary doctor as soon as possible to arrange follow-up Prescriptions: Hydrocodone/Acetaminophen [[place] 5-325 mg Tablet] 1 tab PO Q6 PRN 3 Days #12 tablet PRN Reason: Forms: Return to Work
[2019-03-13 12:52] VITALS: BP 133/71
== END 2019-03-13 12:56 | disposition home or self-care (01) ==
LOC: ER 08:36
DX: S39.012A Strain of muscle, fascia and tendon of lower back, initial encounter (principal); W20.8XXA Other cause of strike by thrown, projected or falling object, initial encounter; Y93.E5 Activity, floor mopping and cleaning; Y99.0 Civilian activity done for income or pay; J45.909 Unspecified asthma, uncomplicated; Z88.0 Allergy status to penicillin; Z87.891 Personal history of nicotine dependence
CPT/HCPCS: 36415; 85025; 80053; 81001; 74177; J2270; J2405; J7030; 96361; 96374; 96375; 96376; 99284

== ENCOUNTER 2019-03-17 10:45 | Emergency (ER) | payer OTHER ==
[2019-03-17 10:59] VITALS: BP 129/82
[2019-03-17] MEDS ORDERED: DEXAMETHASONE SOD PHOS INJ 10 MG/1 ML VIAL IM ONE (11:34)
[2019-03-17] MEDS ORDERED: KETOROLAC TROMETHAMINE 60 MG/2 ML SDV IM ONE (11:34)
--- NOTE | 2019-03-17 11:39 | ER Document Report ---
HPI - HPI Time Seen by Provider: 03/17/19 11:23 Pain Level: 4 Context: Patient is a 49-year-old male who presents to the emergency department with a chief complaint of left low back and right upper back pain. Patient had a 400 pound door fall on top of him at work 4 days ago. Patient was seen here in the emergency department and had a CT which showed 11th rib fracture. Patient states that his main problem is the pain in his lower back. He has not been on any anti-inflammatories. He also was given [place] for pain. Last dose was yesterday. Patient denies any numbness, tingling, or weakness. - CONSTITUTIONAL Constitutional: DENIES: Fever, Chills - EENT EENT: DENIES: Sore Throat, Ear Pain - NEURO Neurology: DENIES: Weakness - CARDIOVASCULAR Cardiovascular: DENIES: Chest pain - RESPIRATORY Respiratory: DENIES: Trouble Breathing, Coughing - GASTROINTESTINAL Gastrointestinal: DENIES: Abdominal Pain, Nausea, Patient vomiting - MUSCULOSKELETAL Musculoskeletal: REPORTS: Back Pain - right upper; left lower. DENIES: Extremity pain, Neck Pain, Swelling - DERM Skin Color: Normal Skin Problems: None Past Medical History - Social History Smoking Status: Former Smoker Chew tobacco use (# tins/day): Yes - couple times a day Family History: Reviewed & Not Pertinent Patient has suicidal ideation: No Patient has homicidal ideation: No Pulmonary Medical History: Reports: Hx Asthma, Hx Bronchitis, Hx Pneumonia Renal/ Medical History: Denies: Hx Peritoneal Dialysis Traumatic Medical History: Reports: Hx Fractures - Open comminuted boxer's fracture on 01/20/2018 - Immunizations Immunizations up to date: Yes Hx Diphtheria, Pertussis, Tetanus Vaccination: Yes Vertical Provider Document - CONSTITUTIONAL Agree With Documented VS: Yes Exam Limitations: No Limitations General Appearance: No Apparent Distress - INFECTION CONTROL TRAVEL OUTSIDE OF THE [place] IN LAST 30 DAYS: No - HEENT HEENT: Atraumatic, Normocephalic, PERRLA - NECK Neck: Normal Inspection - RESPIRATORY Respiratory: No Respiratory Distress - CARDIOVASCULAR Cardiovascular: Regular Rate, Regular Rhythm Pulses: Normal: Posterior tibial, Dorsalis pedis - BACK Back: Normal Inspection Notes: tenderness to left lower back; abrasian noted - MUSCULOSKELETAL/EXTREMETIES Musculoskeletal/Extremeties: FROM, Tender - right shoulder; muscle tension, No Edema. negative: Eccymosis - NEURO Level of Consciousness: Awake, Alert, Appropriate Motor/Sensory: No Motor Deficit, No Sensory Deficit - DERM Integumentary: Warm, Dry, No Rash Course - Re-evaluation Re-evalutation: 03/17/19 11:36 Differential diagnosis for back pain includes muscle spasm, muscle strain, slipped disc cauda equina syndrome, vertebral fracture, vertebral tumor, epidural abscess, pyelonephritis, or AAA. Based on history and exam, the most likely etiology of the patient's back pain is acute to his injury. Emergent MRI is not indicated at this time because the patient does not have new weakness, or cauda equina syndrome. Patient does not have bladder or bowel dysfunction. Patient does not have history of IV drug use, therefore, I do not suspect an epidural abscess. Patient does not have recent weight loss or night sweats, and does not have a known history of cancer. Patient will be treated with Toradol and Decadron. Advised him to take ibuprofen [id number] to help with inflammatory response. I have also advised him to follow-up with Workmen's Compensation. Follow-up precautions were given. Verbal discharge instructions were given to the patient. They verbalized understanding. They are stable for discharge. - Vital Signs Vital signs: Temp Pulse Resp BP Pulse Ox 98.4 F 71 14 129/82 H 100 03/17/19 10:58 03/17/19 10:58 03/17/19 10:58 03/17/19 10:58 03/17/19 10:58 Discharge - Discharge Clinical Impression: Back pain Qualifiers: Back pain location: low back pain Chronicity: acute Back pain laterality: left Sciatica presence: without sciatica Qualified Code(s): M54.5 - Low back pain Lumbar strain Qualifiers: Encounter type: subsequent encounter Qualified Code(s): S39.012D - Strain of muscle, fascia and tendon of lower back, subsequent encounter Condition: Stable Disposition: HOME, SELF-CARE Instructions: Low Back Pain ([facility]), Pain Medication Injection ([facility]), Warm Packs ([facility]) Additional Instructions: You were seen today in the emergency department for back pain. You are given Toradol, medication for pain and Decadron a steroid to help with your pain. Please continue ibuprofen 600 mg and acetaminophen 1000 g every 6 hours for your pain. Please follow-up with Workmen's Compensation in regards to this visit. See if you can get physical therapy. Forms: Return to Work
== END 2019-03-17 12:27 | disposition home or self-care (01) ==
LOC: ER 10:45
DX: S39.012A Strain of muscle, fascia and tendon of lower back, initial encounter (principal); S22.39XA Fracture of one rib, unspecified side, initial encounter for closed fracture; W22.8XXA Striking against or struck by other objects, initial encounter; Y99.0 Civilian activity done for income or pay; J45.909 Unspecified asthma, uncomplicated; Z72.0 Tobacco use
CPT/HCPCS: J1885; J1100; 96372; 99283

== ENCOUNTER 2019-03-21 06:43 | Emergency (ER) | payer OTHER ==
--- NOTE | 2019-03-21 10:13 | ER Document Report ---
ED General - General Chief Complaint: Back Pain Stated Complaint: BACK PAIN Time Seen by Provider: 03/21/19 09:33 TRAVEL OUTSIDE OF THE [place] IN LAST 30 DAYS: No - HPI Notes: Patient is a 49-year-old male who presents emergency department for evaluation of left-sided back pain. He was [place] evaluated here for this in the past. He had a door from work fall on him. He has been referred on to a specialist in [place], cannot be seen until April 01. He states that every time he goes to work his pain is significantly improved. He states he is unable to work. He is going to physical therapy. He denies any bowel or bladder incontinence, no saddle anesthesia, no focal numbness or weakness. His pain is worsened by movement. He states his been taking Tylenol at home which is helping his pain somewhat. - Related Data Allergies/Adverse Reactions: Penicillins Allergy (Verified 03/21/19 08:25) Past Medical History - General Information source: Patient - Social History Smoking Status: Former Smoker Chew tobacco use (# tins/day): Yes Frequency of alcohol use: None Drug Abuse: None Family History: Reviewed & Not Pertinent Patient has suicidal ideation: No Patient has homicidal ideation: No Pulmonary Medical History: Reports: Hx Asthma, Hx Bronchitis, Hx Pneumonia Renal/ Medical History: Denies: Hx Peritoneal Dialysis Traumatic Medical History: Reports: Hx Fractures - Open comminuted boxer's fracture on 01/20/2018 - Immunizations Immunizations up to date: Yes Hx Diphtheria, Pertussis, Tetanus Vaccination: Yes Review of Systems - Review of Systems Constitutional: No symptoms reported EENT: No symptoms reported Cardiovascular: No symptoms reported Respiratory: No symptoms reported Gastrointestinal: No symptoms reported Genitourinary: No symptoms reported Musculoskeletal: See HPI, Back pain Skin: No symptoms reported Neurological/Psychological: No symptoms reported Physical Exam - Notes Notes: Vital signs reviewed, please refer to chart. Head is normocephalic, atraumatic. Pupils equal round, reactive to light. Neck is supple without meningismus. Heart is regular rate and rhythm. Lungs are clear to auscultation bilaterally. Abdomen is soft, nontender, normoactive bowel sounds throughout. Peripheral pulses are equal. Skin is warm and dry. Patient is awake, alert, neurological exam is nonfocal. Examination of the spine yields no midline tenderness or step-off. He has a area of significant tenderness and mild induration noted over the left PSIS, with tracking down into the gluteal region. Negative straight leg raise. Strength is plus 5 out of 5 bilateral lower extremities. Patellar reflexes mildly diminished but symmetrical. Sensation is intact. Course - Re-evaluation Re-evalutation: 03/21/19 10:13 Patient presents emergency department for evaluation of back pain. It is not as significant acute worsening, it is more that he is having continued issues and is unable to work. I will give him a work excuse. We will send him home with entire premature the muscle relaxers. He is to follow-up as scheduled in 1 week to a specialist, return to the ED with worsening or new concerning symptoms of any sort. Discharge - Discharge Clinical Impression: Back pain Condition: Stable Disposition: HOME, SELF-CARE Instructions: Low Back Pain ([facility]) Additional Instructions: Take medications as prescribed, with food. Follow-up with your provider in [place] as scheduled. Return to the ED with worsening or new concerning symptoms of any sort. Forms: Return to Work
[2019-03-21 10:26] VITALS: BP 133/86
== END 2019-03-21 10:46 | disposition home or self-care (01) ==
LOC: ER 06:43
DX: M54.9 Dorsalgia, unspecified (principal); W20.8XXA Other cause of strike by thrown, projected or falling object, initial encounter; Y99.0 Civilian activity done for income or pay; J45.909 Unspecified asthma, uncomplicated; Z72.0 Tobacco use; Z88.0 Allergy status to penicillin
CPT/HCPCS: 99281

== ENCOUNTER 2019-04-26 21:35 | Emergency (ER) | payer OTHER ==
[2019-04-26] MEDS ORDERED: KETOROLAC TROMETHAMINE INJ/PF 30 MG/1 ML SDV IV ONE (23:17)
[2019-04-26] MEDS ORDERED: DEXAMETHASONE SOD PHOS INJ 10 MG/1 ML VIAL IV ONE (23:17)
[2019-04-26] MEDS ORDERED: ACETAMINOPHEN 325 MG TABLET PO ONE (23:17)
[2019-04-26] MEDS ORDERED: LIDOCAINE 5% (700 MG) TRANSDERMAL ADH..PATCH TP ONE (23:17)
[2019-04-26] MEDS ORDERED: DIAZEPAM INJ 10 MG/2 ML DISP.SYRIN IV ONE (23:18)
--- NOTE | 2019-04-26 23:23 | ER Document Report ---
HPI - HPI Patient complains to provider of: Low back pain Time Seen by Provider: 04/26/19 22:54 Pain Level: 3 Context: 49-year-old male presents the emergency department with chief complaint of left sided lower back pain. Patient has been seen here previously for the same injury sustained at work on March 13. Patient states that it happened today and he is having difficulty straightening out his back. Patient states that pain radiates down his left leg. Patient denies any acute urinary retention, bowel incontinence, saddle anesthesia, acute limb weakness, fevers or IV drug use. Past Medical History - Social History Smoking Status: Never Smoker Family History: Reviewed & Not Pertinent Patient has suicidal ideation: No Patient has homicidal ideation: No Pulmonary Medical History: Reports: Hx Asthma, Hx Bronchitis, Hx Pneumonia Renal/ Medical History: Denies: Hx Peritoneal Dialysis Traumatic Medical History: Reports: Hx Fractures - Open comminuted boxer's fracture on 01/20/2018 - Immunizations Immunizations up to date: Yes Hx Diphtheria, Pertussis, Tetanus Vaccination: Yes Vertical Provider Document - CONSTITUTIONAL Notes: PHYSICAL EXAMINATION: Reviewed vital signs and charting by RN GENERAL: Alert, interacts well. No acute distress. HEAD: Normocephalic, atraumatic. EYES: Pupils equal and round. Extraocular movements intact. ENT: Oral mucosa moist, tongue midline. ABDOMEN: soft, non-tender. No distention. Bowel sounds present EXTREMITIES: Moves all 4 extremities spontaneously. No edema, No cyanosis. 5 out of 5 strength both distally and proximally bilateral lower extremities. 2+ patellar reflexes bilaterally. No clonus. Sensation grossly intact in the juanita ateral lower extremities. Patient is able to ambulate without difficulty. PSYCH: Normal affect, normal mood. SKIN: Warm, dry, normal turgor. No rashes or lesions noted. - INFECTION CONTROL TRAVEL OUTSIDE OF THE [place] IN LAST 30 DAYS: No Course - Re-evaluation Re-evalutation: 04/26/19 23:19 Presentation of a well appearing patient complaining of acute on chronic back pain. No rapid progression of symptoms, systemic symptoms including fevers, chills, weight loss, history of recent bacterial infection, bilateral symptoms, numbness, weakness, difficulty walking, urinary retention or bowel incontinence, personal history of cancer, immunosuppression, diabetes, known AAA, or history of IV drug use. Exam is without point tenderness over vertebral bodies, pulsatile abdominal mass, and patient has symmetric and intact lower extremity strength, sensation, and reflexes without clonus. 2+ symmetric medial malleolar and dorsalis pedis pulses Based on history and physical, I have a very low suspicion of a concerning etiology of pain including epidural compression syndrome, spinal infection, transverse myelitis, malignancy, abdominal aortic aneurysm, renal colic, acute lower extremity claudication, neurogenic claudication, ankylosing spondylitis, or other intra-abdominal process. Due to absence of concerning risk factors in history and physical as well as absence of rapidly progressive, severe, or bilateral symptoms, will defer imaging at this point. Plan to manage conservatively with outpatient analgesia, analgesia, and physical therapy. - Acetaminophen 1000 mg every 6 hours + ibuprofen 600 q 6 - Continue normal daily activities as tolerated by pain - Instruct to follow up with primary care provider if symptoms not improving - Provide careful return precautions and concerning symptoms to watch for. - Vital Signs Vital signs: Temp Pulse Resp BP Pulse Ox 144/89 H 100 04/26/19 23:01 04/26/19 23:01 Discharge - Discharge Clinical Impression: Low back pain Qualifiers: Chronicity: acute Back pain laterality: left Sciatica presence: with sciatica Sciatica laterality: sciatica of left side Qualified Code(s): M54.42 - Lumbago with sciatica, left side Condition: Good Disposition: HOME, SELF-CARE Additional Instructions: You have been seen in the Emergency Department (ED) today for back pain. Your workup and exam have not shown any acute abnormalities and you are likely suffering from muscle strain or possible problems with your discs, but there is no treatment that will fix your symptoms at this time. Please take Motrin 600 mg every 6 hours and/or Tylenol 1000 mg every 6 hours for pain/inflammation. You should also purchase a local lidocaine cream such as "aspercreme with lidocaine" and use per bottle instructions to the affected area. Apply heat to the area as often as you are able. Continue to keep active and avoid prolonged periods of bed rest. Please follow up with your doctor as soon as possible regarding today's ED visit and your back pain. Return to the ED for worsening back pain, fever, weakness or numbness of either leg, or if you develop either (1) an inability to urinate or have bowel movements, or (2) loss of your ability to control your bathroom functions (if you start having "accidents"), or if you develop other new symptoms that concern you.concern you.
[2019-04-26 23:53] VITALS: BP 129/74
== END 2019-04-26 23:53 | disposition home or self-care (01) ==
LOC: ER 21:35
DX: M54.42 Lumbago with sciatica, left side (principal)
CPT/HCPCS: 99283; 96374; 96375; J3360; J1885; J1100

== ENCOUNTER 2019-04-30 07:46 | Emergency (ER) | payer OTHER ==
[2019-04-30] MEDS ORDERED: LIDOCAINE 5% (700 MG) TRANSDERMAL ADH..PATCH TP ONE (09:51)
[2019-04-30] MEDS ORDERED: HYDROMORPHONE HCL INJ/PF 2 MG/ML AMPULE IM ONE (09:51)
[2019-04-30] MEDS ORDERED: KETOROLAC TROMETHAMINE 60 MG/2 ML SDV IM ONE (09:51)
--- NOTE | 2019-04-30 09:53 | ER Document Report ---
HPI - HPI Patient complains to provider of: Low back pain Time Seen by Provider: 04/30/19 09:14 Onset: Other - 5 days Onset/Duration: Persistent Quality of pain: Sharp Pain Level: 3 Context: Patient has a history of a low back injury that occurred 2 months ago. Patient has been seeing physical therapy to help manage his pain symptoms. Patient states that he has had a flareup of the back pain for the past 5 days and the pain worsened yesterday after physical therapy. Patient denies any new injury. Patient denies any fever urinary symptoms radiculopathy or paresthesia. Associated Symptoms: denies: Fever, Vomiting Exacerbated by: Standing, Movement, Walking Relieved by: Denies Similar symptoms previously: Yes Recently seen / treated by doctor: No - ROS ROS below otherwise negative: Yes Systems Reviewed and Negative: Yes All other systems reviewed and negative - CONSTITUTIONAL Constitutional: DENIES: Fever, Chills - NEURO Neurology: DENIES: Weakness - GASTROINTESTINAL Gastrointestinal: DENIES: Nausea, Patient vomiting - URINARY Urinary: DENIES: Dysuria - MUSCULOSKELETAL Musculoskeletal: REPORTS: Back Pain. DENIES: Extremity pain, Neck Pain - DERM Skin Color: Normal Skin Problems: None Past Medical History - General Information source: Patient - Social History Smoking Status: Unknown if Ever Smoked Frequency of alcohol use: None Drug Abuse: None Occupation: concrete Lives with: Family Family History: Reviewed & Not Pertinent Patient has suicidal ideation: No Patient has homicidal ideation: No Pulmonary Medical History: Reports: Hx Asthma, Hx Bronchitis, Hx Pneumonia Renal/ Medical History: Denies: Hx Peritoneal Dialysis Musculoskeletal Medical History: Reports Hx Arthritis - back Traumatic Medical History: Reports: Hx Fractures - Open comminuted boxer's fracture on 01/20/2018 Surgical Hx: Negative - Immunizations Immunizations up to date: Yes Hx Diphtheria, Pertussis, Tetanus Vaccination: Yes Vertical Provider Document - CONSTITUTIONAL Agree With Documented VS: Yes Exam Limitations: No Limitations General Appearance: WD/WN, Mild Distress Notes: PHYSICAL EXAMINATION: GENERAL: Well-appearing, well-nourished and in mild distress. HEAD: Atraumatic, normocephalic. EYES: sclera clear, anicteric, conjunctiva are normal. ENT: nares patent, Moist mucous membranes. NECK: Normal range of motion, supple no lymphadenopathy LUNGS: respirations unlabored HEART: Regular rate and rhythm without murmurs EXTREMITIES: Normal range of motion, no pitting or edema. No cyanosis. BACK: Lumbar paraspinal tenderness, lower lumbar midline tenderness, no deformities or step-offs. No CVA tenderness. NEUROLOGICAL: Cranial nerves grossly intact. Normal speech. No saddle anes thesia. PSYCH: Normal mood, normal affect. SKIN: Warm, Dry, normal turgor, no rashes or lesions noted. - INFECTION CONTROL TRAVEL OUTSIDE OF THE [place] IN LAST 30 DAYS: No Course - Re-evaluation Re-evalutation: 04/30/19 Patient able to stand up and ambulate after pain was controlled. The patient presents with low back pain without signs of spinal cord compression, cauda equina syndrome, infection, aneurysm, or other serious etiology. The patient is neurologically intact. Given the extremely risk of these diagnoses further testing and evaluation for these possibilities does not appear to be indicated at this time. Patient has been instructed to return if the symptoms worsen or change in any way. - Vital Signs Vital signs: Temp Pulse Resp BP Pulse Ox 98.0 F 70 16 120/65 96 04/30/19 07:58 04/30/19 07:58 04/30/19 07:58 04/30/19 07:58 04/30/19 07:58 Discharge - Discharge Clinical Impression: Low back pain Qualifiers: Chronicity: unspecified Back pain laterality: midline Sciatica presence: without sciatica Qualified Code(s): M54.5 - Low back pain Condition: Stable Disposition: HOME, SELF-CARE Instructions: Ice Packs ([facility]), Low Back Pain ([facility]), Oral Narcotic Medication ([facility]), Pain Medication Injection ([facility]) Additional Instructions: Return immediately for any new or worsening symptoms Followup with your primary care provider, call tomorrow to make a followup appointment Prescriptions: Naproxen [Naprosyn 250 Nmg Tablet] 1 tab PO BID #14 tablet Oxycodone HCl/Acetaminophen [Percocet 5-325 mg Tablet] 1 tab PO ASDIR PRN #15 tablet PRN Reason: Forms: Return to Work Referrals: [facility] [Provider Group] - Follow up as needed
[2019-04-30 12:09] VITALS: BP 113/62
== END 2019-04-30 11:59 | disposition home or self-care (01) ==
LOC: ER 07:46
DX: M54.5 Low back pain (principal); J45.909 Unspecified asthma, uncomplicated
CPT/HCPCS: 99283; 96372; J1885; J1170

== ENCOUNTER 2019-06-22 10:06 | Emergency (ER) | payer SELFPAY ==
[2019-06-22 10:32] VITALS: BP 147/85
== END 2019-06-22 11:31 | disposition left against medical advice (07) ==
LOC: ER 10:06
DX: Z53.21 Procedure and treatment not carried out due to patient leaving prior to being seen by health care provider (principal)

== ENCOUNTER 2019-06-23 17:14 | Emergency (ER) | payer SELFPAY ==
[2019-06-23] MEDS ORDERED: IBUPROFEN 800 MG TABLET PO ONE (18:39)
--- NOTE | 2019-06-23 18:42 | ER Document Report ---
HPI - HPI Time Seen by Provider: 06/23/19 18:30 Pain Level: 5 Context: Patient is a 49-year-old male presents emergency department with a chief complaint of cough. Patient reports symptoms have been present for about 3 to 4 days. He reports low-grade fever of 100.8 at home. States he has not taken any thing for his pain, or cough. Denies nausea, vomiting or diarrhea. Denies sick contacts. Patient reports a dry cough. He reports initially started out as a sore throat and now feels like it is in his chest. Patient also complains of right rib pain that is worse with cough or movement. Patient denies nasal congestion, runny nose, ear pain. Patient did not receive influenza vaccine this year. - CONSTITUTIONAL Constitutional: REPORTS: Fever. DENIES: Chills - RESPIRATORY Respiratory: REPORTS: Coughing - REPRODUCTIVE Reproductive: DENIES: : Past Medical History - General Information source: Patient - Social History Smoking Status: Never Smoker Lives with: Family Family History: Reviewed & Not Pertinent Patient has suicidal ideation: No Patient has homicidal ideation: No - Past Medical History Cardiac Medical History: Reports: None Pulmonary Medical History: Reports: Hx Asthma, Hx Bronchitis, Hx Pneumonia EENT Medical History: Reports: None Neurological Medical History: Reports: None Endocrine Medical History: Reports: None Renal/ Medical History: Reports: None. Denies: Hx Peritoneal Dialysis Malignancy Medical History: Reports None GI Medical History: Reports: None Musculoskeletal Medical History: Reports Hx Arthritis - back Skin Medical History: Reports None Psychiatric Medical History: Reports: None Traumatic Medical History: Reports: Hx Fractures - Open comminuted boxer's fracture on 01/20/2018 Infectious Medical History: Reports: None Surgical Hx: Negative - Immunizations Immunizations up to date: Yes Hx Diphtheria, Pertussis, Tetanus Vaccination: Yes Vertical Provider Document - CONSTITUTIONAL Agree With Documented VS: Yes Exam Limitations: No Limitations General Appearance: No Apparent Distress - INFECTION CONTROL TRAVEL OUTSIDE OF THE [place] IN LAST 30 DAYS: No - HEENT HEENT: Atraumatic, Normal ENT Exam, Normocephalic, PERRLA Notes: Tonsils without hypertrophy, + erythema without exudate. - NECK Neck: Normal Inspection - RESPIRATORY Respiratory: Breath Sounds Normal, No Respiratory Distress Notes: dry intermittent cough - CARDIOVASCULAR Cardiovascular: Regular Rate, Regular Rhythm - GI/ABDOMEN Gastrointestinal: Abdomen Soft, Abdomen Non-Tender, Normal Bowel Sounds - MUSCULOSKELETAL/EXTREMETIES Musculoskeletal/Extremeties: FROM - NEURO Level of Consciousness: Awake, Alert, Appropriate - DERM Integumentary: Warm, Dry, No Rash Course - Re-evaluation Re-evalutation: 06/23/19 20:23 I did discuss the results with the patient and family. Patient symptoms most likely viral. He does report sick contacts at work recently with similar symptoms. Patient influenza testing, strep and chest x-ray were negative. I will give patient a prescription for Tessalon Perles to take as needed for cough. Patient encouraged to stay home tomorrow from work and rest and push fluids, alternate Tylenol and ibuprofen. Patient nontoxic-appearing no acute distress. - Vital Signs Vital signs: Temp Pulse Resp BP Pulse Ox 99.4 F 87 16 129/75 H 100 06/23/19 17:23 06/23/19 17:23 06/23/19 17:23 06/23/19 17:23 06/23/19 17:23 - Laboratory Laboratory results interpreted by me: 06/23/19 19:36 Laboratory 06/23/19 06/23/19 18:37 18:37 Influenza A (Rapid) NEGATIVE Influenza B (Rapid) NEGATIVE Group A Strep Rapid NEGATIVE - Diagnostic Test Radiology reviewed: Reports reviewed Radiology results interpreted by me: 06/23/19 19:36 Chest X-Ray 06/23/19 18:38 IMPRESSION: No acute cardiopulmonary process. Discharge - Discharge Clinical Impression: Cough, Congestion of respiratory tract, Generalized body aches Condition: Stable Disposition: HOME, SELF-CARE Additional Instructions: *Today was seen the emergency department for body aches and cough. Your influenza testing, strep and chest x-ray were negative. Please continue to alternate Tylenol and ibuprofen. You can use [id number] decongestants. Please return to the emergency department if you develop any new or worsening symptoms. UPPER RESPIRATORY ILLNESS: You have a viral infection of the respiratory passages -- a "cold." This common infection causes nasal congestion, drainage, and often sore throat and cough. It is highly contagious. The disease usually lasts about 10 to 14 days. There is no "cure" for the viral infection -- it must run its course. If there is a complication, such as bacterial infection in the nose, sinuses, middle ear, or bronchial tubes, antibiotics may be required. The antibiotics won't affect the virus. Drink plenty of fluids. A humidifier may help. An expectorant medication or decongestant may make you more comfortable. Use acetaminophen or ibuprofen for fever or aches. See the doctor if fever persists over two days, if there is any significant worsening of your symptoms, or if you simply fail to improve as expected. COUGH-SUPPRESSANT & EXPECTORANT MEDICATION: You are to use a cough medication as needed for relief of symptoms. This medicine is a combination of an expectorant (to make the mucous thinner and more easily "coughed up") and a cough suppressant (to reduce the frequency of coughing). The cough-suppressant medicine is related to narcotics. You may experience mild nausea and sleepiness. Some patients who are very sensitive to narcotics may have stomach pain from this medicine. Taking the medicine with food reduces these side effects. Do not drive or work with machinery until you know how this medicine affects you. The expectorant should have no side effects. Iodine-containing expectorants (such as organidin) should not be taken by persons with active thyroid disease unless approved by your doctor. Call the doctor if you develop shortness of breath, hives, rash, itching, lightheadedness, or severe nausea and vomiting. USE OF ACETAMINOPHEN (Tylenol): Acetaminophen may be taken for pain relief or fever control. It's much safer than aspirin, offering a wider range of "safe" dosages. It is safe during . Some brand names are Tylenol, Panadol, Datril, Anacin 3, Tempra, and Liquiprin. Acetaminophen can be repeated every four hours. The following are maximum recommended dosages: >89 pounds or adults 650 mg to 900 mg Acetaminophen can be repeated every four hours. Maximum dose not to exceed 4000 mg a day. SMOKING: If you smoke, you should stop smoking. The tar and chemicals in cigarette smoke are harmful. Smoking has been shown to cause: emphysema chronic bronchitis lung cancer mouth and throat cancer stomach and pancreas cancer premature aging defects In addition, smoking increases ear and lung infections in children of smokers. FOLLOW-UP CARE: If you have been referred to a physician for follow-up care, call the physicians office for an appointment as you were instructed or within the next two days. If you experience worsening or a significant change in your symptoms, notify the physician immediately or return to the Emergency Department at any time for re-evaluation. Prescriptions: Benzonatate [Tessalon Perles 100 mg Capsule] 100 mg PO Q8HP PRN #40 capsule PRN Reason: Forms: Return to Work Referrals: [facility] [Provider Group] - Follow up as needed
--- NOTE | 2019-06-23 19:05 | RADIOLOGY REPORT (SQ) ---
EXAM DESCRIPTION: CHEST 2 VIEWS COMPLETED DATE/TIME: 06/23/2019 6:53 pm REASON FOR STUDY: fever, cough COMPARISON: AP view of the chest from 11/25/2018. EXAM PARAMETERS: NUMBER OF VIEWS: two views TECHNIQUE: PA and lateral views of the chest were obtained. RADIATION DOSE: NA LIMITATIONS: none FINDINGS: LUNGS AND PLEURA: No consolidation, pleural effusion or pneumothorax. MEDIASTINUM AND HILAR STRUCTURES: No mediastinal or hilar contour abnormality. HEART AND VASCULAR STRUCTURES: The cardiac silhouette and pulmonary vasculature are within normal xiao its. BONES: No acute findings. HARDWARE: None in the chest. OTHER: No other finding. IMPRESSION: No acute cardiopulmonary process. TECHNICAL DOCUMENTATION: JOB ID: [id number] [employer]- All Rights Reserved Reading location - IP/workstation name: [email or web address]
[2019-06-23 19:09] LABS: A TYPE INFLUENZA AG NEGATIVE (NEGATIVE); B INFLUENZA AG NEGATIVE (NEGATIVE)
[2019-06-23 20:32] VITALS: BP 130/80
== END 2019-06-23 20:28 | disposition home or self-care (01) ==
LOC: ER 17:14
DX: R68.89 Other general symptoms and signs (principal); M79.10 Myalgia, unspecified site; R05 Cough; R50.9 Fever, unspecified
CPT/HCPCS: 71046; 87070; 87804; 87880; 99283

== ENCOUNTER 2020-01-18 13:14 | Emergency (ER) | payer SELFPAY ==
[2020-01-18 13:42] VITALS: BP 148/116
--- NOTE | 2020-01-18 13:43 | ER Document Report ---
HPI - HPI Time Seen by Provider: 01/18/20 13:36 Notes: Patient is a 49-year-old male otherwise healthy presenting to the emergency department via EMS for "heat exhaustion". Patient reports he was working outside the last 2 days, wearing sweatpants and sweatshirt, he states he thinks he sweat too much so today he started having all over body cramps. He states that EMS put him in a cool environment and gave him IV fluids. He states that he is feeling much better. He has been drinking Gatorade in the lobby and reports he is ready to go home. He denies any chest pain, shortness of breath or any other concerns today. - ROS ROS below otherwise negative: Yes - CONSTITUTIONAL Notes: Body cramping now resolved - REPRODUCTIVE Reproductive: DENIES: : Past Medical History - General Information source: Patient - Social History Smoking Status: Never Smoker Frequency of alcohol use: Occasional Drug Abuse: None Family History: Reviewed & Not Pertinent Pulmonary Medical History: Reports: Hx Asthma, Hx Bronchitis, Hx Pneumonia Renal/ Medical History: Denies: Hx Peritoneal Dialysis Musculoskeletal Medical History: Reports Hx Arthritis - back Traumatic Medical History: Reports: Hx Fractures - Open comminuted boxer's fracture on 01/20/2018 - Immunizations Immunizations up to date: Yes Hx Diphtheria, Pertussis, Tetanus Vaccination: Yes Vertical Provider Document - CONSTITUTIONAL Notes: PHYSICAL EXAMINATION: GENERAL: Well-appearing, well-nourished and in no acute distress. HEAD: Atraumatic, normocephalic. EYES: Pupils equal round and reactive to light, extraocular movements intact, sclera anicteric, conjunctiva are normal. ENT: Nares patent, oropharynx clear without exudates. Moist mucous membranes. NECK: Normal range of motion, supple without lymphadenopathy LUNGS: Breath sounds clear to auscultation bilaterally and equal. No wheezes rales or rhonchi. HEART: Regular rate and rhythm without murmurs ABDOMEN: Soft, nontender, nondistended abdomen. No guarding, no rebound. No masses appreciated. Musculoskeletal: Normal range of motion, no pitting or edema. No cyanosis. NEUROLOGICAL: Cranial nerves grossly intact. Normal speech, normal gait. Normal sensory, motor exams PSYCH: Normal mood, normal affect. SKIN: Warm, Dry, normal turgor, no rashes or lesions noted. - INFECTION CONTROL TRAVEL OUTSIDE OF THE [place] IN LAST 30 DAYS: No Course - Re-evaluation Re-evalutation: 01/18/20 13:42 Patient appears well, nontoxic. At the time of my evaluation EMS had already given him IV fluids. Patient reports all the symptoms of body cramping have resolved and he feels significantly better. Patient declines any further work- up, states he is ready to go home. He denies any chest pain or shortness of breath. He will be discharged home at this time with strict ED return precautions. Discharge - Discharge Clinical Impression: Muscle cramping Condition: Stable Disposition: HOME, SELF-CARE Additional Instructions: You have declined any further work-up in the emergency room today. Your vitals were normal here we will discharge you home at this time. Please make sure you stay hydrated, drink plenty of fluids. Return to the emergency department any new or worsening concerns.
== END 2020-01-18 13:44 | disposition home or self-care (01) ==
LOC: ER 13:14
DX: R25.2 Cramp and spasm (principal); M79.10 Myalgia, unspecified site; J45.909 Unspecified asthma, uncomplicated
CPT/HCPCS: 99283

== ENCOUNTER 2020-01-24 15:49 | Emergency (ER) | payer SELFPAY ==
[2020-01-24 16:08] VITALS: BP 115/64
--- NOTE | 2020-01-24 19:00 | EKG REPORT ---
SEVERITY:- BORDERLINE ECG - SINUS TACHYCARDIA BORDERLINE T WAVE ABNORMALITIES : Confirmed by: Alyssia Doty MD 24-Jan-2020 18:59:52
== END 2020-01-24 17:09 | disposition left against medical advice (07) ==
LOC: ER 15:49
DX: Z53.21 Procedure and treatment not carried out due to patient leaving prior to being seen by health care provider (principal)
CPT/HCPCS: 93005; 93010

== ENCOUNTER 2020-04-05 21:49 | Emergency (ER) | payer SELFPAY ==
[2020-04-06] MEDS ORDERED: HYDROCODONE/ACETAMINOPHEN 10-325 MG TABLET PO ONE (00:03)
[2020-04-06] MEDS ORDERED: CLINDAMYCIN HCL 150 MG CAPSULE PO ONE (00:03)
[2020-04-06] MEDS ORDERED: HYDROCODONE/ACETAMINOPHEN 5-325 MG (6 TAB/ER DISP) PO PRN (00:06)
--- NOTE | 2020-04-06 00:09 | ER Document Report ---
ED General - General Chief Complaint: Toothache Stated Complaint: TOOTH PAIN Time Seen by Provider: 04/06/20 00:01 Mode of Arrival: Ambulatory Information source: Patient Notes: Patient is a 50-year-old -[place] male coming in today with dental pain. Pain in the left lower jaw. states fractured piece of tooth on the premolar tooth left lower jaw. TRAVEL OUTSIDE OF THE [place] IN LAST 30 DAYS: No - Related Data Allergies/Adverse Reactions: Penicillins Allergy (Verified 03/21/19 08:25) Past Medical History - Social History Smoking Status: Unknown if Ever Smoked Family History: Reviewed & Not Pertinent Pulmonary Medical History: Reports: Hx Asthma, Hx Bronchitis, Hx Pneumonia Renal/ Medical History: Denies: Hx Peritoneal Dialysis Musculoskeletal Medical History: Reports Hx Arthritis - back Traumatic Medical History: Reports: Hx Fractures - Open comminuted boxer's fracture on 01/20/2018 - Immunizations Immunizations up to date: Yes Hx Diphtheria, Pertussis, Tetanus Vaccination: Yes Review of Systems - Review of Systems Notes: Constitutional: No fevers. No chills. EENT: No eye redness. No eye pain. No ear pain. No sore throat. Tooth ache Cardiovascular: No chest pain. No palpitations. Respiratory: No cough. No shortness of breath. No respiratory distress. Gastrointestinal: No abdominal pain. No nausea, vomiting, or diarrhea. Genitourinary: Atraumatic. No lesions. No pain. No discharge. Musculoskeletal: Atraumatic. No swelling. No deformities. Skin: No rash or lesions. Lymphatic: No swollen lymph nodes. Physical Exam - Vital signs Vitals: Temp Pulse Resp BP Pulse Ox 98.8 F 82 18 154/99 H 100 04/05/20 22:11 04/05/20 22:11 04/05/20 22:11 04/05/20 22:11 04/05/20 22:11 - Notes Notes: General: Well-developed, well-nourished. In no acute distress. Non-toxic appearing. Cardiac: Well-perfused. Regular rate and rhythm. No murmurs, rubs, or gallops. Pulmonary: No respiratory distress. No cyanosis. Bilateral lung fiels are clear to auscultation. Abdominal: Non-distended. Non-rigid. Bowels sounds are present in all four quadrants. No guarding or rebound. HEENT: Head is atraumatic. Conjunctivae not reddened. No tearing. PERRL. EOMI. Orbits atraumatic. No periorbital swelling or erythema. Oropharynx is without erythema, swelling, or exudates. Left lower jaw premolar tooth with large anterior cavity. No gum abscess. No purulent drainage. No submandibular or sublingual swelling. No dysphonia dyspnea or dysphagia. Neck: Supple. No adenopathy. No meningismus. Dermatologic: Warm with good turgor. No rash. Atraumatic. Chest: Atraumatic. No chest wall tenderness to palpation. Musculoskeletal: Moves all extremities well. No range of motion deficits. no muscular or joint tenderness. No paraspinal muscle tenderness. no midline spinal tenderness or step-off. Genitourinary: Examination deferred Neurologic: No gross neurologic deficits. Psychiatric: Normal mood. Course - Vital Signs Vital signs: Temp Pulse Resp BP Pulse Ox 98.8 F 82 18 154/99 H 100 04/05/20 22:11 04/05/20 22:11 04/05/20 22:11 04/05/20 22:11 04/05/20 22:11 Discharge - Discharge Clinical Impression: Tooth ache, Elevated blood pressure reading Condition: Good Disposition: HOME, SELF-CARE Instructions: [facility], Clindamycin ([facility]), Toothache ([facility]), Oral Narcotic Medication ([facility]) Additional Instructions: Be sure to follow-up with a dentist as soon as possible Prescriptions: Clindamycin HCl 300 mg PO TID #21 capsule Forms: Elevated Blood Pressure
[2020-04-06 01:00] VITALS: BP 151/98
== END 2020-04-06 02:01 | disposition home or self-care (01) ==
LOC: ER 21:49
DX: K02.9 Dental caries, unspecified (principal); K08.89 Other specified disorders of teeth and supporting structures; R03.0 Elevated blood-pressure reading, without diagnosis of hypertension; J45.909 Unspecified asthma, uncomplicated; Z88.0 Allergy status to penicillin
CPT/HCPCS: 99284